=== PATIENT | male | born 1950 | race Caucasian/White ===

== ENCOUNTER 2025-02-24 08:47 | Day surgery (SDC) | payer MEDICARE ==
[2025-02-24] MEDS ORDERED: diphenhydrAMINE 25 MG CAP ONE (09:33)
[2025-02-24] MEDS ORDERED: Acetaminophen 500 MG TAB ONE (09:33)
[2025-02-24] MEDS: diphenhydrAMINE 25 MG CAP PO SCH (09:33)
[2025-02-24] MEDS: Acetaminophen 500 MG TAB PO SCH (09:33)
[2025-02-24] MEDS ORDERED: PNEUMOC 20-VAL CONJ-DIP CRM/PF 0.5 ML SYRINGE IM ONE (10:45)
[2025-02-24 12:29] VITALS: BP 123/58; TEMP 97.8
== END 2025-02-24 12:31 | disposition home or self-care (01) ==
LOC: ONC/OP 08:47
PROVIDERS: ATTEND Internal Medicine
DX: D64.9 Anemia, unspecified (principal); D69.6 Thrombocytopenia, unspecified
CPT/HCPCS: 36430; 86850; 86900; 86901; 86920; 90677; G0009; J1642; P9016; 90471

== ENCOUNTER 2025-03-14 09:30 | Outpatient (CLI) | payer MEDICARE | END 2025-03-14 09:31 | disposition home or self-care (01) | LOC: PET 09:30 | PROVIDERS: ATTEND Internal Medicine | DX: C34.11 Malignant neoplasm of upper lobe, right bronchus or lung (principal); D70.1 Agranulocytosis secondary to cancer chemotherapy; T45.1X5A Adverse effect of antineoplastic and immunosuppressive drugs, initial encounter; J90 Pleural effusion, not elsewhere classified; R91.8 Other nonspecific abnormal finding of lung field | CPT/HCPCS: 78815; A9552 ==